=== PATIENT | female | born 1980 | race American Indian/Alaskan Native ===

== ENCOUNTER 2021-01-09 13:23 | Emergency (ER) | payer SELFPAY ==
[2021-01-09] MEDS ORDERED: IBUPROFEN 800 MG TAB PO ONE (15:05)
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
[2021-01-09 16:29] LABS: HCG Qualitative,Urine Negative (Negative)
[2021-01-09 16:47] VITALS: BP 147/83
== END 2021-01-09 17:22 | disposition home or self-care (01) ==
LOC: ED 13:23
DX: S16.1XXA Strain of muscle, fascia and tendon at neck level, initial encounter (principal); Z79.899 Other long term (current) drug therapy; V49.49XA Driver injured in collision with other motor vehicles in traffic accident, initial encounter; Y93.89 Activity, other specified; Y92.488 Other paved roadways as the place of occurrence of the external cause; Y99.8 Other external cause status
CPT/HCPCS: 72040; 72070; 81025; 99283